=== PATIENT | male | born 1960 | race Caucasian/White ===

== ENCOUNTER 2022-10-27 10:28 | Inpatient (IN) | payer OTHER ==
[2022-10-27 11:25] VITALS: BMI 29.0
[2022-10-27] MEDS ORDERED: NICOTINE 10 MG CARTRIDGE (INHALER) IH PRN (11:26)
[2022-10-27] MEDS ORDERED: IBUPROFEN 400 MG TABLET (FP) PO PRN (11:26)
[2022-10-27] MEDS ORDERED: ACETAMINOPHEN 325 MG TABLET (FP) PO PRN (11:26)
[2022-10-27] MEDS ORDERED: hydrOXYzine PAMOATE 25 MG CAPSULE (FP) PO PRN (11:26)
[2022-10-27] MEDS ORDERED: BENZONATATE 200 MG CAPSULE PO PRN (11:26)
[2022-10-27] MEDS ORDERED: POLYETHYLENE GLYCOL (HEALTHYLAX) 3350 17 GM PACKET PO PRN (11:26)
[2022-10-27] MEDS ORDERED: BENZOCAINE/MENTHOL (CHLORASEPTIC ) LOZENGE MM PRN (11:26)
[2022-10-27] MEDS ORDERED: LOPERAMIDE HCL 2 MG CAPSULE PO PRN (11:26)
[2022-10-27] MEDS ORDERED: IBUPROFEN 600 MG TABLET (FP) PO PRN (11:26)
[2022-10-27] MEDS ORDERED: guaiFENesin 600 MG TABLET.ER (FP) PO PRN (11:26)
[2022-10-27] MEDS ORDERED: NALOXONE HCL (KLOXXADO) 8 MG SPRAY NS PRN (11:26)
[2022-10-27] MEDS ORDERED: NALOXONE HCL 0.4 MG/ML VIAL IM PRN (11:26)
[2022-10-27] MEDS ORDERED: ALBUTEROL SO4 HFA INHALER IH PRN (11:30)
[2022-10-27] MEDS ORDERED: VITAMINS A AND D TOPICAL OINTMENT 60 GM TUBE TP PRN (11:44)
[2022-10-27 17:49] LABS: POTASSIUM 4.2 mmol/L (3.5-5.1)
[2022-10-27 17:50] LABS: HEMATOCRIT 31.3 % (35.4-49); HEMOGLOBIN 10.5 GM/dL (11.7-16.9); MCH 30.3 pg (25.7-33.7); MCHC 33.5 g/dl (32.0-35.9); MEAN CELL VOLUME 90.6 fl (80-96); MEAN PLT VOLUME 8.7 fl (7.5-11.1); PLATELET COUNT 134 10^3/uL (134-434); RBC 3.46 M/mm3 (4.00-5.60); RDW 14.3 % (11.9-15.9); WHITE BLOOD COUNT 4.1 K/mm3 (4.0-10.0)
[2022-10-27 17:52] LABS: CALCIUM 9.1 mg/dL (8.5-10.1)
[2022-10-27 17:53] LABS: ALBUMIN 3.2 g/dl (3.4-5.0); BLOOD UREA NITROGEN 22.7 mg/dL (7-18)
[2022-10-27 17:58] LABS: BILIRUBIN,TOTAL 0.2 mg/dL (0.2-1); TOT PROT 7.1 g/dl (6.4-8.2)
[2022-10-27] MEDS: BUDESONIDE/FORMETEROL FUMARATE 160/4.5 mcg INHALER IH SCH (21:18)
[2022-10-27] MEDS: MELATONIN 5 MG TABLETS PO SCH (21:19)
[2022-10-27] MEDS: THIAMINE HCL 100 MG TABLET (FP) PO SCH (21:19)
[2022-10-28] MEDS ORDERED: methaDONE HCL 10 MG TABLET PO ONE (09:56)
[2022-10-28] MEDS: PRENATAL VITAMINS W/ FOLIC ACID TABLET (FP) PO SCH (10:04)
[2022-10-28] MEDS: NICOTINE 14 MG/24 HOURS TOPICAL PATCH TD SCH (10:04)
[2022-10-28] MEDS: BUDESONIDE/FORMETEROL FUMARATE 160/4.5 mcg INHALER IH SCH ×2 (10:04→21:29)
[2022-10-28] MEDS ORDERED: methaDONE 80 MG, methaDONE 20 MG PO ONE (10:08)
[2022-10-28] MEDS: MELATONIN 5 MG TABLETS PO SCH (21:29)
[2022-10-28] MEDS: THIAMINE HCL 100 MG TABLET (FP) PO SCH (21:29)
[2022-10-29] MEDS ORDERED: methaDONE HCL 10 MG TABLET PO SCH (06:00)
[2022-10-29] MEDS: methaDONE 80 MG, methaDONE 20 MG PO SCH (06:27)
[2022-10-29] MEDS: BUDESONIDE/FORMETEROL FUMARATE 160/4.5 mcg INHALER IH SCH ×2 (09:42→21:12)
[2022-10-29] MEDS: PRENATAL VITAMINS W/ FOLIC ACID TABLET (FP) PO SCH (09:42)
[2022-10-29] MEDS: NICOTINE 14 MG/24 HOURS TOPICAL PATCH TD SCH (09:42)
[2022-10-29 18:22] LABS: EPI CELLS 12 /uL (0-25.1); HYALINE CASTS 0 /uL (0-3.1); PH,URINE 6.5 (5.0-8.0); URINE APPEARANCE CLEAR; URINE BILIRUBIN NEGATIVE (NEGATIVE); URINE COLOR YELLOW; URINE GLUCOSE (UA) NEGATIVE (NEGATIVE); URINE KETONE NEGATIVE (NEGATIVE); URINE LEUK ESTERASE NEGATIVE (NEGATIVE); URINE NITRITE POSITIVE (NEGATIVE); URINE PROTEIN 1+ (NEGATIVE); URINE RBC 131 /uL (0-23.9); URINE UROBILINOGEN 0.2 mg/dL (0.2-1.0); URINE WBC 8 /uL (0-25.8)
[2022-10-29] MEDS: MELATONIN 5 MG TABLETS PO SCH (21:12)
[2022-10-29] MEDS: THIAMINE HCL 100 MG TABLET (FP) PO SCH (21:12)
[2022-10-30] MEDS: methaDONE 80 MG, methaDONE 20 MG PO SCH (06:56)
[2022-10-30] MEDS: NICOTINE 14 MG/24 HOURS TOPICAL PATCH TD SCH (09:51)
[2022-10-30] MEDS: PRENATAL VITAMINS W/ FOLIC ACID TABLET (FP) PO SCH (09:51)
[2022-10-30] MEDS: BUDESONIDE/FORMETEROL FUMARATE 160/4.5 mcg INHALER IH SCH ×2 (09:52→21:11)
[2022-10-30] MEDS ORDERED: ALBUTEROL SO4 HFA INHALER IH PRN (12:56)
[2022-10-30] MEDS: THIAMINE HCL 100 MG TABLET (FP) PO SCH (21:11)
[2022-10-30] MEDS: MELATONIN 5 MG TABLETS PO SCH (21:11)
[2022-10-30] MEDS: TRIAMCINOLONE ACET 0.1% CREAM 15 GM TUBE TP SCH (21:12)
[2022-10-30] MEDS: MUPIROCIN CA 2% TOPICAL CREAM 15 GM TUBE TP SCH (21:12)
[2022-10-30] MEDS: CLOTRIMAZOLE 1% CREAM TP SCH (21:12)
[2022-10-31] MEDS: methaDONE 80 MG, methaDONE 20 MG PO SCH (06:56)
[2022-10-31] MEDS: NICOTINE 14 MG/24 HOURS TOPICAL PATCH TD SCH (09:53)
[2022-10-31] MEDS: BUDESONIDE/FORMETEROL FUMARATE 160/4.5 mcg INHALER IH SCH ×2 (09:53→21:37)
[2022-10-31] MEDS: PRENATAL VITAMINS W/ FOLIC ACID TABLET (FP) PO SCH (09:53)
[2022-10-31] MEDS: MUPIROCIN CA 2% TOPICAL CREAM 15 GM TUBE TP SCH ×2 (09:53→21:37)
[2022-10-31] MEDS: TRIAMCINOLONE ACET 0.1% CREAM 15 GM TUBE TP SCH ×2 (09:53→21:37)
[2022-10-31] MEDS: FLUTICASONE PROP 0.05% 16 GM NASAL SPRAY NS SCH (09:54)
[2022-10-31] MEDS: CLOTRIMAZOLE 1% CREAM TP SCH ×2 (09:54→21:37)
[2022-10-31] MEDS: MAG HYDROX/AL HYDROX/SIMETH 30 ML UNIT-DOSE CUP PO PRN (14:28)
[2022-10-31] MEDS: THIAMINE HCL 100 MG TABLET (FP) PO SCH (21:37)
[2022-10-31] MEDS: MELATONIN 5 MG TABLETS PO SCH (21:37)
[2022-11-01] MEDS: methaDONE 80 MG, methaDONE 20 MG PO SCH (06:12)
[2022-11-01] MEDS: PRENATAL VITAMINS W/ FOLIC ACID TABLET (FP) PO SCH (09:45)
[2022-11-01] MEDS: FLUTICASONE PROP 0.05% 16 GM NASAL SPRAY NS SCH (09:45)
[2022-11-01] MEDS: BUDESONIDE/FORMETEROL FUMARATE 160/4.5 mcg INHALER IH SCH ×2 (09:45→21:11)
[2022-11-01] MEDS: NICOTINE 14 MG/24 HOURS TOPICAL PATCH TD SCH (09:45)
[2022-11-01] MEDS: TRIAMCINOLONE ACET 0.1% CREAM 15 GM TUBE TP SCH ×2 (09:45→21:11)
[2022-11-01] MEDS: CLOTRIMAZOLE 1% CREAM TP SCH ×2 (09:45→21:11)
[2022-11-01] MEDS: MUPIROCIN CA 2% TOPICAL CREAM 15 GM TUBE TP SCH ×2 (09:46→21:11)
[2022-11-01] MEDS: MELATONIN 5 MG TABLETS PO SCH (21:11)
[2022-11-01] MEDS: THIAMINE HCL 100 MG TABLET (FP) PO SCH (21:11)
[2022-11-02] MEDS: methaDONE 80 MG, methaDONE 20 MG PO SCH (07:03)
[2022-11-02] MEDS: TRIAMCINOLONE ACET 0.1% CREAM 15 GM TUBE TP SCH ×2 (09:44→21:22)
[2022-11-02] MEDS: MUPIROCIN CA 2% TOPICAL CREAM 15 GM TUBE TP SCH ×2 (09:44→21:22)
[2022-11-02] MEDS: FLUTICASONE PROP 0.05% 16 GM NASAL SPRAY NS SCH (09:45)
[2022-11-02] MEDS: CLOTRIMAZOLE 1% CREAM TP SCH ×2 (09:45→21:22)
[2022-11-02] MEDS: PRENATAL VITAMINS W/ FOLIC ACID TABLET (FP) PO SCH (09:45)
[2022-11-02] MEDS: NICOTINE 14 MG/24 HOURS TOPICAL PATCH TD SCH (09:45)
[2022-11-02] MEDS: BUDESONIDE/FORMETEROL FUMARATE 160/4.5 mcg INHALER IH SCH ×2 (09:45→21:21)
[2022-11-02] MEDS: THIAMINE HCL 100 MG TABLET (FP) PO SCH (21:21)
[2022-11-02] MEDS: MELATONIN 5 MG TABLETS PO SCH (21:21)
[2022-11-03] MEDS: methaDONE 80 MG, methaDONE 20 MG PO SCH (06:38)
[2022-11-03] MEDS: FLUTICASONE PROP 0.05% 16 GM NASAL SPRAY NS SCH (09:55)
[2022-11-03] MEDS: PRENATAL VITAMINS W/ FOLIC ACID TABLET (FP) PO SCH (09:55)
[2022-11-03] MEDS: NICOTINE 14 MG/24 HOURS TOPICAL PATCH TD SCH (09:55)
[2022-11-03] MEDS: CLOTRIMAZOLE 1% CREAM TP SCH ×2 (09:55→21:18)
[2022-11-03] MEDS: TRIAMCINOLONE ACET 0.1% CREAM 15 GM TUBE TP SCH ×2 (09:55→21:18)
[2022-11-03] MEDS: MUPIROCIN CA 2% TOPICAL CREAM 15 GM TUBE TP SCH ×2 (09:55→21:18)
[2022-11-03] MEDS: BUDESONIDE/FORMETEROL FUMARATE 160/4.5 mcg INHALER IH SCH ×2 (09:56→21:17)
[2022-11-03] MEDS: THIAMINE HCL 100 MG TABLET (FP) PO SCH (21:18)
[2022-11-03] MEDS: MELATONIN 5 MG TABLETS PO SCH (21:18)
[2022-11-04] MEDS: methaDONE 80 MG, methaDONE 20 MG PO SCH (06:21)
[2022-11-04] MEDS: FLUTICASONE PROP 0.05% 16 GM NASAL SPRAY NS SCH (09:53)
[2022-11-04] MEDS: BUDESONIDE/FORMETEROL FUMARATE 160/4.5 mcg INHALER IH SCH ×2 (09:53→21:22)
[2022-11-04] MEDS: MUPIROCIN CA 2% TOPICAL CREAM 15 GM TUBE TP SCH ×2 (09:54→21:22)
[2022-11-04] MEDS: TRIAMCINOLONE ACET 0.1% CREAM 15 GM TUBE TP SCH ×2 (09:54→21:21)
[2022-11-04] MEDS: CLOTRIMAZOLE 1% CREAM TP SCH ×2 (09:54→21:22)
[2022-11-04] MEDS: NICOTINE 14 MG/24 HOURS TOPICAL PATCH TD SCH (09:55)
[2022-11-04] MEDS: PRENATAL VITAMINS W/ FOLIC ACID TABLET (FP) PO SCH (09:55)
[2022-11-04] MEDS: NICOTINE POLACRILEX 2 MG GUM BUC PRN ×2 (09:57→16:54)
[2022-11-04] MEDS: MELATONIN 5 MG TABLETS PO SCH (21:21)
[2022-11-04] MEDS: THIAMINE HCL 100 MG TABLET (FP) PO SCH (21:21)
[2022-11-05] MEDS: methaDONE 80 MG, methaDONE 20 MG PO SCH (06:13)
[2022-11-05] MEDS: TRIAMCINOLONE ACET 0.1% CREAM 15 GM TUBE TP SCH ×2 (10:12→21:14)
[2022-11-05] MEDS: MUPIROCIN CA 2% TOPICAL CREAM 15 GM TUBE TP SCH ×2 (10:12→21:14)
[2022-11-05] MEDS: CLOTRIMAZOLE 1% CREAM TP SCH ×2 (10:12→21:14)
[2022-11-05] MEDS: NICOTINE 14 MG/24 HOURS TOPICAL PATCH TD SCH (10:12)
[2022-11-05] MEDS: PRENATAL VITAMINS W/ FOLIC ACID TABLET (FP) PO SCH (10:12)
[2022-11-05] MEDS: FLUTICASONE PROP 0.05% 16 GM NASAL SPRAY NS SCH (10:13)
[2022-11-05] MEDS: BUDESONIDE/FORMETEROL FUMARATE 160/4.5 mcg INHALER IH SCH ×2 (10:13→21:14)
[2022-11-05] MEDS: NICOTINE POLACRILEX 2 MG GUM BUC PRN ×2 (10:15→21:14)
[2022-11-05] MEDS: THIAMINE HCL 100 MG TABLET (FP) PO SCH (21:13)
[2022-11-05] MEDS: MELATONIN 5 MG TABLETS PO SCH (21:13)
[2022-11-06] MEDS: methaDONE 80 MG, methaDONE 20 MG PO SCH (06:14)
[2022-11-06] MEDS: MUPIROCIN CA 2% TOPICAL CREAM 15 GM TUBE TP SCH ×2 (09:20→21:27)
[2022-11-06] MEDS: NICOTINE 14 MG/24 HOURS TOPICAL PATCH TD SCH (09:20)
[2022-11-06] MEDS: TRIAMCINOLONE ACET 0.1% CREAM 15 GM TUBE TP SCH ×2 (09:20→21:27)
[2022-11-06] MEDS: BUDESONIDE/FORMETEROL FUMARATE 160/4.5 mcg INHALER IH SCH ×2 (09:21→21:26)
[2022-11-06] MEDS: CLOTRIMAZOLE 1% CREAM TP SCH ×2 (09:22→21:27)
[2022-11-06] MEDS: FLUTICASONE PROP 0.05% 16 GM NASAL SPRAY NS SCH (09:22)
[2022-11-06] MEDS: PRENATAL VITAMINS W/ FOLIC ACID TABLET (FP) PO SCH (09:22)
[2022-11-06] MEDS: MAGNESIUM HYDROX 2400MG/30ML ORAL SUSPENSION 30 ML CUP PO PRN (09:22)
[2022-11-06] MEDS: LACTULOSE 20 GM/30 ML UDC (FOR ORAL USE ONLY) PO PRN (12:11)
[2022-11-06] MEDS: THIAMINE HCL 100 MG TABLET (FP) PO SCH (21:26)
[2022-11-06] MEDS: MELATONIN 5 MG TABLETS PO SCH (21:26)
[2022-11-07] MEDS: methaDONE 80 MG, methaDONE 20 MG PO SCH (06:39)
[2022-11-07] MEDS: PRENATAL VITAMINS W/ FOLIC ACID TABLET (FP) PO SCH (09:42)
[2022-11-07] MEDS: BUDESONIDE/FORMETEROL FUMARATE 160/4.5 mcg INHALER IH SCH ×2 (09:42→21:22)
[2022-11-07] MEDS: CLOTRIMAZOLE 1% CREAM TP SCH ×2 (09:43→21:23)
[2022-11-07] MEDS: FLUTICASONE PROP 0.05% 16 GM NASAL SPRAY NS SCH (09:43)
[2022-11-07] MEDS: MUPIROCIN CA 2% TOPICAL CREAM 15 GM TUBE TP SCH ×2 (09:44→21:24)
[2022-11-07] MEDS: TRIAMCINOLONE ACET 0.1% CREAM 15 GM TUBE TP SCH ×2 (09:45→21:24)
[2022-11-07] MEDS: NICOTINE 14 MG/24 HOURS TOPICAL PATCH TD SCH (09:46)
[2022-11-07] MEDS: THIAMINE HCL 100 MG TABLET (FP) PO SCH (21:23)
[2022-11-07] MEDS: MELATONIN 5 MG TABLETS PO SCH (21:23)
[2022-11-08] MEDS: methaDONE 80 MG, methaDONE 20 MG PO SCH (06:51)
[2022-11-08] MEDS: PRENATAL VITAMINS W/ FOLIC ACID TABLET (FP) PO SCH (09:57)
[2022-11-08] MEDS: FLUTICASONE PROP 0.05% 16 GM NASAL SPRAY NS SCH (09:57)
[2022-11-08] MEDS: BUDESONIDE/FORMETEROL FUMARATE 160/4.5 mcg INHALER IH SCH ×2 (09:57→21:24)
[2022-11-08] MEDS: MUPIROCIN CA 2% TOPICAL CREAM 15 GM TUBE TP SCH ×2 (09:58→21:26)
[2022-11-08] MEDS: NICOTINE 14 MG/24 HOURS TOPICAL PATCH TD SCH (09:58)
[2022-11-08] MEDS: CLOTRIMAZOLE 1% CREAM TP SCH ×2 (09:58→21:26)
[2022-11-08] MEDS: TRIAMCINOLONE ACET 0.1% CREAM 15 GM TUBE TP SCH ×2 (09:58→21:26)
[2022-11-08] MEDS: MELATONIN 5 MG TABLETS PO SCH (21:25)
[2022-11-08] MEDS: THIAMINE HCL 100 MG TABLET (FP) PO SCH (21:25)
[2022-11-09] MEDS: methaDONE 80 MG, methaDONE 20 MG PO SCH (06:04)
[2022-11-09] MEDS: PRENATAL VITAMINS W/ FOLIC ACID TABLET (FP) PO SCH (09:37)
[2022-11-09] MEDS: NICOTINE 14 MG/24 HOURS TOPICAL PATCH TD SCH (09:38)
[2022-11-09] MEDS: BUDESONIDE/FORMETEROL FUMARATE 160/4.5 mcg INHALER IH SCH ×2 (09:38→21:16)
[2022-11-09] MEDS: FLUTICASONE PROP 0.05% 16 GM NASAL SPRAY NS SCH (09:38)
[2022-11-09] MEDS: CLOTRIMAZOLE 1% CREAM TP SCH ×2 (09:39→21:17)
[2022-11-09] MEDS: MUPIROCIN CA 2% TOPICAL CREAM 15 GM TUBE TP SCH ×2 (09:39→21:16)
[2022-11-09] MEDS: TRIAMCINOLONE ACET 0.1% CREAM 15 GM TUBE TP SCH ×2 (09:39→21:16)
[2022-11-09] MEDS: THIAMINE HCL 100 MG TABLET (FP) PO SCH (21:16)
[2022-11-09] MEDS: MELATONIN 5 MG TABLETS PO SCH (21:16)
[2022-11-10] MEDS: methaDONE 80 MG, methaDONE 20 MG PO SCH (06:26)
[2022-11-10] MEDS: CLOTRIMAZOLE 1% CREAM TP SCH ×2 (09:47→21:39)
[2022-11-10] MEDS: PRENATAL VITAMINS W/ FOLIC ACID TABLET (FP) PO SCH (09:47)
[2022-11-10] MEDS: BUDESONIDE/FORMETEROL FUMARATE 160/4.5 mcg INHALER IH SCH ×2 (09:47→21:38)
[2022-11-10] MEDS: FLUTICASONE PROP 0.05% 16 GM NASAL SPRAY NS SCH (09:47)
[2022-11-10] MEDS: TRIAMCINOLONE ACET 0.1% CREAM 15 GM TUBE TP SCH ×2 (09:48→21:38)
[2022-11-10] MEDS: NICOTINE 14 MG/24 HOURS TOPICAL PATCH TD SCH (09:48)
[2022-11-10] MEDS: MUPIROCIN CA 2% TOPICAL CREAM 15 GM TUBE TP SCH ×2 (09:48→21:39)
[2022-11-10] MEDS: MAG HYDROX/AL HYDROX/SIMETH 30 ML UNIT-DOSE CUP PO PRN ×2 (11:21→16:22)
[2022-11-10] MEDS: MELATONIN 5 MG TABLETS PO SCH (21:38)
[2022-11-10] MEDS: THIAMINE HCL 100 MG TABLET (FP) PO SCH (21:38)
[2022-11-11] MEDS ORDERED: methaDONE HCL 10 MG TABLET PO SCH (06:00)
[2022-11-11] MEDS: methaDONE 80 MG, methaDONE 20 MG PO SCH (06:38)
[2022-11-11] MEDS: BUDESONIDE/FORMETEROL FUMARATE 160/4.5 mcg INHALER IH SCH ×2 (09:37→21:23)
[2022-11-11] MEDS: FLUTICASONE PROP 0.05% 16 GM NASAL SPRAY NS SCH (09:37)
[2022-11-11] MEDS: MUPIROCIN CA 2% TOPICAL CREAM 15 GM TUBE TP SCH ×2 (09:38→21:25)
[2022-11-11] MEDS: TRIAMCINOLONE ACET 0.1% CREAM 15 GM TUBE TP SCH ×2 (09:38→21:25)
[2022-11-11] MEDS: PRENATAL VITAMINS W/ FOLIC ACID TABLET (FP) PO SCH (09:38)
[2022-11-11] MEDS: NICOTINE 14 MG/24 HOURS TOPICAL PATCH TD SCH (09:38)
[2022-11-11] MEDS: CLOTRIMAZOLE 1% CREAM TP SCH ×2 (09:39→21:25)
[2022-11-11] MEDS: THIAMINE HCL 100 MG TABLET (FP) PO SCH (21:23)
[2022-11-11] MEDS: MELATONIN 5 MG TABLETS PO SCH (21:23)
[2022-11-12] MEDS: methaDONE 80 MG, methaDONE 20 MG PO SCH (05:27)
[2022-11-12] MEDS: PRENATAL VITAMINS W/ FOLIC ACID TABLET (FP) PO SCH (09:41)
[2022-11-12] MEDS: FLUTICASONE PROP 0.05% 16 GM NASAL SPRAY NS SCH (09:41)
[2022-11-12] MEDS: CLOTRIMAZOLE 1% CREAM TP SCH ×2 (09:42→21:21)
[2022-11-12] MEDS: TRIAMCINOLONE ACET 0.1% CREAM 15 GM TUBE TP SCH ×2 (09:42→21:21)
[2022-11-12] MEDS: NICOTINE 14 MG/24 HOURS TOPICAL PATCH TD SCH (09:42)
[2022-11-12] MEDS: MUPIROCIN CA 2% TOPICAL CREAM 15 GM TUBE TP SCH ×2 (09:42→21:21)
[2022-11-12] MEDS: BUDESONIDE/FORMETEROL FUMARATE 160/4.5 mcg INHALER IH SCH ×2 (09:42→21:22)
[2022-11-12] MEDS: THIAMINE HCL 100 MG TABLET (FP) PO SCH (21:22)
[2022-11-12] MEDS: MELATONIN 5 MG TABLETS PO SCH (21:22)
[2022-11-13] MEDS: methaDONE 80 MG, methaDONE 20 MG PO SCH (09:42)
[2022-11-13] MEDS: FLUTICASONE PROP 0.05% 16 GM NASAL SPRAY NS SCH (09:45)
[2022-11-13] MEDS: NICOTINE 14 MG/24 HOURS TOPICAL PATCH TD SCH (09:46)
[2022-11-13] MEDS: MUPIROCIN CA 2% TOPICAL CREAM 15 GM TUBE TP SCH ×2 (09:46→21:27)
[2022-11-13] MEDS: TRIAMCINOLONE ACET 0.1% CREAM 15 GM TUBE TP SCH ×2 (09:46→21:27)
[2022-11-13] MEDS: BUDESONIDE/FORMETEROL FUMARATE 160/4.5 mcg INHALER IH SCH ×2 (09:46→21:05)
[2022-11-13] MEDS: CLOTRIMAZOLE 1% CREAM TP SCH ×2 (09:46→21:27)
[2022-11-13] MEDS: PRENATAL VITAMINS W/ FOLIC ACID TABLET (FP) PO SCH (09:46)
[2022-11-13] MEDS: THIAMINE HCL 100 MG TABLET (FP) PO SCH (21:05)
[2022-11-13] MEDS: MELATONIN 5 MG TABLETS PO SCH (21:05)
[2022-11-14] MEDS: PRENATAL VITAMINS W/ FOLIC ACID TABLET (FP) PO SCH (09:52)
[2022-11-14] MEDS: BUDESONIDE/FORMETEROL FUMARATE 160/4.5 mcg INHALER IH SCH ×2 (09:53→21:24)
[2022-11-14] MEDS: MUPIROCIN CA 2% TOPICAL CREAM 15 GM TUBE TP SCH ×2 (09:55→21:24)
[2022-11-14] MEDS: TRIAMCINOLONE ACET 0.1% CREAM 15 GM TUBE TP SCH ×2 (09:55→21:24)
[2022-11-14] MEDS: NICOTINE 14 MG/24 HOURS TOPICAL PATCH TD SCH (09:56)
[2022-11-14] MEDS: FLUTICASONE PROP 0.05% 16 GM NASAL SPRAY NS SCH (09:56)
[2022-11-14] MEDS: CLOTRIMAZOLE 1% CREAM TP SCH ×2 (09:56→21:25)
[2022-11-14] MEDS: methaDONE 80 MG, methaDONE 20 MG PO SCH (10:19)
[2022-11-14] MEDS: MELATONIN 5 MG TABLETS PO SCH (21:24)
[2022-11-14] MEDS: THIAMINE HCL 100 MG TABLET (FP) PO SCH (21:24)
[2022-11-15] MEDS: methaDONE 80 MG, methaDONE 20 MG PO SCH (09:12)
[2022-11-15] MEDS: BUDESONIDE/FORMETEROL FUMARATE 160/4.5 mcg INHALER IH SCH ×2 (09:15→21:28)
[2022-11-15] MEDS: FLUTICASONE PROP 0.05% 16 GM NASAL SPRAY NS SCH (09:18)
[2022-11-15] MEDS: TRIAMCINOLONE ACET 0.1% CREAM 15 GM TUBE TP SCH ×2 (09:19→21:28)
[2022-11-15] MEDS: PRENATAL VITAMINS W/ FOLIC ACID TABLET (FP) PO SCH (09:19)
[2022-11-15] MEDS: NICOTINE 14 MG/24 HOURS TOPICAL PATCH TD SCH (09:19)
[2022-11-15] MEDS: CLOTRIMAZOLE 1% CREAM TP SCH ×2 (09:19→21:29)
[2022-11-15] MEDS: MUPIROCIN CA 2% TOPICAL CREAM 15 GM TUBE TP SCH ×2 (09:19→21:29)
[2022-11-15] MEDS: THIAMINE HCL 100 MG TABLET (FP) PO SCH (21:28)
[2022-11-15] MEDS: MELATONIN 5 MG TABLETS PO SCH (21:28)
[2022-11-16] MEDS: methaDONE 80 MG, methaDONE 20 MG PO SCH (09:57)
[2022-11-16] MEDS: FLUTICASONE PROP 0.05% 16 GM NASAL SPRAY NS SCH (09:58)
[2022-11-16] MEDS: BUDESONIDE/FORMETEROL FUMARATE 160/4.5 mcg INHALER IH SCH ×2 (09:58→21:07)
[2022-11-16] MEDS: PRENATAL VITAMINS W/ FOLIC ACID TABLET (FP) PO SCH (09:59)
[2022-11-16] MEDS: CLOTRIMAZOLE 1% CREAM TP SCH ×2 (10:00→21:07)
[2022-11-16] MEDS: NICOTINE 14 MG/24 HOURS TOPICAL PATCH TD SCH (10:00)
[2022-11-16] MEDS: TRIAMCINOLONE ACET 0.1% CREAM 15 GM TUBE TP SCH ×2 (10:00→21:08)
[2022-11-16] MEDS: MUPIROCIN CA 2% TOPICAL CREAM 15 GM TUBE TP SCH ×2 (10:00→21:08)
[2022-11-16] MEDS: THIAMINE HCL 100 MG TABLET (FP) PO SCH (21:07)
[2022-11-16] MEDS: MELATONIN 5 MG TABLETS PO SCH (21:07)
[2022-11-17] MEDS: PRENATAL VITAMINS W/ FOLIC ACID TABLET (FP) PO SCH (09:48)
[2022-11-17] MEDS: NICOTINE 14 MG/24 HOURS TOPICAL PATCH TD SCH (09:49)
[2022-11-17] MEDS: methaDONE 80 MG, methaDONE 20 MG PO SCH (09:49)
[2022-11-17] MEDS: FLUTICASONE PROP 0.05% 16 GM NASAL SPRAY NS SCH (09:51)
[2022-11-17] MEDS: BUDESONIDE/FORMETEROL FUMARATE 160/4.5 mcg INHALER IH SCH ×2 (09:51→21:18)
[2022-11-17] MEDS: CLOTRIMAZOLE 1% CREAM TP SCH ×2 (09:52→21:19)
[2022-11-17] MEDS: MUPIROCIN CA 2% TOPICAL CREAM 15 GM TUBE TP SCH ×2 (09:52→21:19)
[2022-11-17] MEDS: TRIAMCINOLONE ACET 0.1% CREAM 15 GM TUBE TP SCH ×2 (09:52→21:18)
[2022-11-17] MEDS: MELATONIN 5 MG TABLETS PO SCH (21:17)
[2022-11-17] MEDS: THIAMINE HCL 100 MG TABLET (FP) PO SCH (21:17)
[2022-11-18] MEDS: MUPIROCIN CA 2% TOPICAL CREAM 15 GM TUBE TP SCH ×2 (09:54→21:27)
[2022-11-18] MEDS: CLOTRIMAZOLE 1% CREAM TP SCH ×2 (09:54→21:27)
[2022-11-18] MEDS: NICOTINE 14 MG/24 HOURS TOPICAL PATCH TD SCH (09:54)
[2022-11-18] MEDS: TRIAMCINOLONE ACET 0.1% CREAM 15 GM TUBE TP SCH ×2 (09:54→21:26)
[2022-11-18] MEDS: PRENATAL VITAMINS W/ FOLIC ACID TABLET (FP) PO SCH (09:54)
[2022-11-18] MEDS: BUDESONIDE/FORMETEROL FUMARATE 160/4.5 mcg INHALER IH SCH ×2 (09:55→21:21)
[2022-11-18] MEDS: FLUTICASONE PROP 0.05% 16 GM NASAL SPRAY NS SCH (09:55)
[2022-11-18] MEDS: LACTULOSE 20 GM/30 ML UDC (FOR ORAL USE ONLY) PO PRN (09:56)
[2022-11-18] MEDS: methaDONE 80 MG, methaDONE 20 MG PO SCH (09:56)
[2022-11-18] MEDS: MELATONIN 5 MG TABLETS PO SCH (21:22)
[2022-11-18] MEDS: THIAMINE HCL 100 MG TABLET (FP) PO SCH (21:22)
[2022-11-19] MEDS: methaDONE 80 MG, methaDONE 20 MG PO SCH (09:39)
[2022-11-19] MEDS: NICOTINE 14 MG/24 HOURS TOPICAL PATCH TD SCH (09:39)
[2022-11-19] MEDS: PRENATAL VITAMINS W/ FOLIC ACID TABLET (FP) PO SCH (09:39)
[2022-11-19] MEDS: BUDESONIDE/FORMETEROL FUMARATE 160/4.5 mcg INHALER IH SCH ×2 (09:41→21:30)
[2022-11-19] MEDS: CLOTRIMAZOLE 1% CREAM TP SCH ×2 (09:42→21:27)
[2022-11-19] MEDS: FLUTICASONE PROP 0.05% 16 GM NASAL SPRAY NS SCH (09:42)
[2022-11-19] MEDS: MUPIROCIN CA 2% TOPICAL CREAM 15 GM TUBE TP SCH ×2 (09:43→21:27)
[2022-11-19] MEDS: TRIAMCINOLONE ACET 0.1% CREAM 15 GM TUBE TP SCH ×2 (09:43→21:26)
[2022-11-19] MEDS: MELATONIN 5 MG TABLETS PO SCH (21:29)
[2022-11-19] MEDS: THIAMINE HCL 100 MG TABLET (FP) PO SCH (21:29)
[2022-11-20] MEDS: PRENATAL VITAMINS W/ FOLIC ACID TABLET (FP) PO SCH (09:45)
[2022-11-20] MEDS: methaDONE 80 MG, methaDONE 20 MG PO SCH (09:46)
[2022-11-20] MEDS: MUPIROCIN CA 2% TOPICAL CREAM 15 GM TUBE TP SCH ×2 (09:47→21:21)
[2022-11-20] MEDS: NICOTINE 14 MG/24 HOURS TOPICAL PATCH TD SCH (09:47)
[2022-11-20] MEDS: CLOTRIMAZOLE 1% CREAM TP SCH ×2 (09:47→21:21)
[2022-11-20] MEDS: TRIAMCINOLONE ACET 0.1% CREAM 15 GM TUBE TP SCH ×2 (09:47→21:21)
[2022-11-20] MEDS: FLUTICASONE PROP 0.05% 16 GM NASAL SPRAY NS SCH (09:49)
[2022-11-20] MEDS: BUDESONIDE/FORMETEROL FUMARATE 160/4.5 mcg INHALER IH SCH ×2 (09:49→21:21)
[2022-11-20] MEDS: THIAMINE HCL 100 MG TABLET (FP) PO SCH (21:20)
[2022-11-20] MEDS: MELATONIN 5 MG TABLETS PO SCH (21:20)
[2022-11-21] MEDS: PRENATAL VITAMINS W/ FOLIC ACID TABLET (FP) PO SCH (10:12)
[2022-11-21] MEDS: methaDONE 80 MG, methaDONE 20 MG PO SCH (10:12)
[2022-11-21] MEDS: FLUTICASONE PROP 0.05% 16 GM NASAL SPRAY NS SCH (10:16)
[2022-11-21] MEDS: MUPIROCIN CA 2% TOPICAL CREAM 15 GM TUBE TP SCH ×2 (10:16→21:23)
[2022-11-21] MEDS: TRIAMCINOLONE ACET 0.1% CREAM 15 GM TUBE TP SCH ×2 (10:17→21:23)
[2022-11-21] MEDS: CLOTRIMAZOLE 1% CREAM TP SCH ×2 (10:17→21:22)
[2022-11-21] MEDS: BUDESONIDE/FORMETEROL FUMARATE 160/4.5 mcg INHALER IH SCH ×2 (10:18→21:21)
[2022-11-21] MEDS: NICOTINE 14 MG/24 HOURS TOPICAL PATCH TD SCH (10:19)
[2022-11-21] MEDS: MAGNESIUM HYDROX 2400MG/30ML ORAL SUSPENSION 30 ML CUP PO PRN (12:55)
[2022-11-21] MEDS: THIAMINE HCL 100 MG TABLET (FP) PO SCH (21:20)
[2022-11-21] MEDS: MELATONIN 5 MG TABLETS PO SCH (21:20)
[2022-11-22] MEDS: MUPIROCIN CA 2% TOPICAL CREAM 15 GM TUBE TP SCH ×2 (09:53→21:00)
[2022-11-22] MEDS: PRENATAL VITAMINS W/ FOLIC ACID TABLET (FP) PO SCH (09:53)
[2022-11-22] MEDS: TRIAMCINOLONE ACET 0.1% CREAM 15 GM TUBE TP SCH ×2 (09:53→21:00)
[2022-11-22] MEDS: NICOTINE 14 MG/24 HOURS TOPICAL PATCH TD SCH (09:54)
[2022-11-22] MEDS: BUDESONIDE/FORMETEROL FUMARATE 160/4.5 mcg INHALER IH SCH ×2 (09:54→20:59)
[2022-11-22] MEDS: methaDONE 80 MG, methaDONE 20 MG PO SCH (09:54)
[2022-11-22] MEDS: CLOTRIMAZOLE 1% CREAM TP SCH ×2 (09:54→21:00)
[2022-11-22] MEDS: FLUTICASONE PROP 0.05% 16 GM NASAL SPRAY NS SCH (09:56)
[2022-11-22] MEDS: MAG HYDROX/AL HYDROX/SIMETH 30 ML UNIT-DOSE CUP PO PRN (11:45)
[2022-11-22] MEDS: MAGNESIUM HYDROX 2400MG/30ML ORAL SUSPENSION 30 ML CUP PO PRN (11:45)
[2022-11-22] MEDS: THIAMINE HCL 100 MG TABLET (FP) PO SCH (20:59)
[2022-11-22] MEDS: MELATONIN 5 MG TABLETS PO SCH (20:59)
[2022-11-23 07:13] VITALS: RESP 18; TEMP 98
[2022-11-23] MEDS: methaDONE 80 MG, methaDONE 20 MG PO SCH (09:02)
[2022-11-23] MEDS: PRENATAL VITAMINS W/ FOLIC ACID TABLET (FP) PO SCH (09:04)
[2022-11-23] MEDS: TRIAMCINOLONE ACET 0.1% CREAM 15 GM TUBE TP SCH (09:04)
[2022-11-23] MEDS: BUDESONIDE/FORMETEROL FUMARATE 160/4.5 mcg INHALER IH SCH (09:04)
[2022-11-23] MEDS: FLUTICASONE PROP 0.05% 16 GM NASAL SPRAY NS SCH (09:04)
[2022-11-23] MEDS: CLOTRIMAZOLE 1% CREAM TP SCH (09:05)
[2022-11-23] MEDS: NICOTINE 14 MG/24 HOURS TOPICAL PATCH TD SCH (09:05)
[2022-11-23] MEDS: MUPIROCIN CA 2% TOPICAL CREAM 15 GM TUBE TP SCH (09:05)
[2022-11-23 10:01] VITALS: BP 112/68; PULSE 93
== END 2022-11-23 11:00 | disposition home or self-care (01) | DRG 772 ==
LOC: YASAS 10:28 → Y5N 15:45
PROVIDERS: ADMIT Allergy & Immunology; ATTEND Psychiatry & Neurology Pain Medicine
PROC: HZ42ZZZ Group Counseling for Substance Abuse Treatment, Cognitive-Behavioral (ICD-10-PCS; principal; 2022-10-27)
DX: F11.20 Opioid dependence, uncomplicated (principal); F17.210 Nicotine dependence, cigarettes, uncomplicated; F25.1 Schizoaffective disorder, depressive type; J44.9 Chronic obstructive pulmonary disease, unspecified; L40.9 Psoriasis, unspecified; Z95.828 Presence of other vascular implants and grafts; Z99.89 Dependence on other enabling machines and devices
CPT/HCPCS: 36415; 80053; 81003; 85027; 86780; 86803; 87086; 93005; 93010; C9803-CS; U0003; U0005